=== PATIENT | male | born 1950 | race Caucasian/White ===

== ENCOUNTER 2016-09-10 09:13 | Day surgery (SDC) | payer BC ==
[2016-09-04 08:49] LABS: HEMATOCRIT 42.2 % (40.0-51.0); HEMOGLOBIN 14.5 g/dL (13.6-17.8)
[2016-09-04 09:01] LABS: BUN (BLOOD UREA NITROGEN) 16 MG/DL (6-23); CALCIUM, SERUM 9.2 MG/DL (8.5-10.4); CHLORIDE, SERUM 108 MMOL/L (96-112); CO2 (CARBON DIOXIDE) 26 MMOL/L (24-34); GFR AFRICAN AMERICAN 120 ML/MIN (>=60); GFR NON AFRICAN AMERICAN 103 ML/MIN (>=60); GLUCOSE, SERUM 106 MG/DL (60-99); POTASSIUM, SERUM 3.9 MMOL/L (3.5-5.3); SODIUM, SERUM 140 MMOL/L (135-148)
--- NOTE | ~2016-09-10 | OP ---
Record Of Operation [facility] [address] [place]. [address] NAME: JOSE ANGEL CONNELLY : 46 STATUS : REG [facility] [place] PAT#: [id number] AGE: 66 ADM/REG DATE : 09/10/16 MR#: [id number] REPORT SERV DATE: 09/10/16 DICTATED BY: SARAY DUARTE DATE: 09/10/16 REPORT STATUS : Draft TRANSCRIBED BY: MODL DATE: 09/10/16 DATE OF PROCEDURE: 09/10/2016 PREOPERATIVE DIAGNOSIS: Right carpal tunnel syndrome. POSTOPERATIVE DIAGNOSIS: Right carpal tunnel syndrome. PROCEDURES: Right carpal tunnel release. PHYSICIAN: Saray Duarte M.D. ANESTHESIA: Local MAC. ESTIMATED BLOOD LOSS: None. SPECIMENS: None. COMPLICATIONS: None. DISPOSITION: The patient tolerated the procedure well and was brought to recovery room in stable condition. PROCEDURE NOTE: The patient was brought to the operating room and placed in a supine position. After IV sedation was given, a pneumatic tourniquet was placed around the right proximal arm and a surgical timeout was performed. All were in agreement. Local block was done using 10 mL of 1% lidocaine plain, injected in about the skin overlying the right carpal tunnel region. Afterwards, the right upper extremity distal to the tourniquet was prepped and draped in the usual sterile manner. An Esmarch was then used to exsanguinate the extremity and tourniquet was inflated. A 15 blade scalpel was used to make a 3 to 4 cm longitudinal incision starting at the volar wrist crease and directed distally. The incision incorporated a portion of the thenar crease and also was stayed mostly in line with the radial aspect of the ring finger. After the skin was incised, the palmar fascia was identified, and incised along the length of its fibers to reveal the underlying transverse carpal ligament. The entire transverse carpal ligament from its most proximal to its most distal border was incised just radial to the hook of the hamate. Afterwards, adequate decompression was noted. After incising the transverse carpal ligament and making sure that it was completely released, the carpal tunnel area appeared well decompressed. The wound was irrigated and skin was closed with deep and superficial 4-0 Monocryl sutures. Steri-Strips and sterile dressing was applied. Tourniquet was released and the patient was taken out of IV sedation and brought to recovery room in stable condition. /MODL Record Of [place] [id number] [id number] NAME: JOSE ANGEL CONNELLY : 46 STATUS : REG [facility]#: [id number] AGE: 66 ADM/REG DATE : 09/10/16 MR#: [id number] REPORT SERV DATE: 09/10/16 DICTATED BY: SARAY DUARTE DATE: 09/10/16 REPORT STATUS : Draft TRANSCRIBED BY: LROA DATE: 09/10/16 Saray Duarte M.D. / [id number] CC: Talat Shaw M.D.
[~2016-09-10 09:13] MED LIST: ASAB PO; BRILINTA90 MG PO; CLORAZ DIPOT PO; CO Q-10100 MG PO; LIPITOR40 PO; ORACEA40 MG PO; SELENIUM PO
== END 2016-09-10 23:59 | disposition home or self-care (01) ==
LOC: MSC 09:13
PROVIDERS: Orthopaedic Surgery Hand Surgery
PROC: 01N50ZZ Release Median Nerve, Open Approach (ICD-10-PCS; principal; 2016-09-10 10:45)
DX: G56.01 Carpal tunnel syndrome, right upper limb (principal); I25.10 Atherosclerotic heart disease of native coronary artery without angina pectoris; F41.9 Anxiety disorder, unspecified; M19.90 Unspecified osteoarthritis, unspecified site; K63.5 Polyp of colon; H26.9 Unspecified cataract; G47.33 Obstructive sleep apnea (adult) (pediatric); Z99.89 Dependence on other enabling machines and devices; Z95.5 Presence of coronary angioplasty implant and graft; Z79.82 Long term (current) use of aspirin; Z79.899 Other long term (current) drug therapy; Z98.890 Other specified postprocedural states
CPT/HCPCS: 80048; 85014; 85018; 93005; A9270-GY; J0690